=== PATIENT | female | born 1970 | race Caucasian/White ===

== ENCOUNTER → 2018-01-07 07:42 | Outpatient (CLI) | payer OTHER, SELFPAY ==
[2018-01-07 09:46] LABS: Alanine Aminotransferase 21 U/L (12-78); Albumin Level 3.5 gm/dL (3.4-5.0); Alkaline Phosphatase 76 U/L (46-116); Aspartate Amino Transferase 8 U/L (15-37); Bilirubin,Direct 0.2 mg/dL (0.0-0.2); Bilirubin,Indirect 0.5 mg/dL (0.0-0.9); Bilirubin,Total 0.7 mg/dL (0.2-1.0); Chol/HDL Ratio 3.5 (1-3.5); Cholesterol 112 mg/dL (140-200); HDL Cholesterol 32 mg/dL (29-89); LDL Cholesterol 53 mg/dL (0-130); Total Protein,Serum 7.2 gm/dL (6.4-8.2); Triglycerides 136 mg/dL (30-200); VLDL Cholesterol 27 mg/dL (0-40)
== END ==
PROVIDERS: Visit Provider Urology
DX: I10 Essential (primary) hypertension (principal); I25.10 Atherosclerotic heart disease of native coronary artery without angina pectoris
CPT/HCPCS: 36415; 80061; 80076

== ENCOUNTER → 2018-07-27 11:27 | Outpatient (CLI) | payer OTHER, SELFPAY ==
--- NOTE | 2018-07-27 11:28 | NM_ITS ---
CARDIOLITE SPECT MYOCARDIAL PERFUSION LEXISCAN, REST AND STRESS: [facility] REVIEW QGS EF AND WALL MOTION EVALUATION: QPS - PERFUSION EVALUATION HISTORY: c.p., cad DOSE: 10.34 mCi technetium 99m mibi intravenously at rest followed by 30.2 mCi technetium 99m mibi following the intravenous ministration of 0.4 mg of Lexiscan. Resting blood pressure is 128/71. Stress blood pressure 125/69. FINDINGS: Ejection fraction is calculated to be 69%. Uniform activity with both stress and rest IMPRESSION: No scintigraphic evidence of Lexiscan-induced myocardial ischemia with normal ejection fraction normal wall motion
--- NOTE | 2018-07-27 11:44 | CA_ITS ---
PROCEDURE: 2-D M-mode and color Doppler study INDICATIONS FOR THE TEST: Chest pain X COPD Heart Murmur Tobacco SmokingX Palpitations Fatigue Syncope Edema HypertensionXDiabetes MellitusX Rheumatic Fever SOB BOU[place]REAUX ObesityXHyperlipidemia Family History HD Additional History CAD,STENTS PATIENT INFORMATION HEIGHT: 65 WEIGHT:206 GENDER: Female B/P:110/60 2-D/M-MODE INTERPRETATION: 2-D MEASUREMENTS OBSERVED VALUES IN CMS Right Ventricular Dimension (RVDd) 2.6 Interventricular Septum (Thickness)(IVsd) .9 Left Ventricular Internal Dimensions(LVIDd) 5.3 Left Ventricular Posterior Wall (Thickness)(LVPWd) 1.0 Aortic Root 3.2 Aortic Cusp Separation 1.5 Left Atrial Dimensions (LAD) 3.0 2D 1. Left atrium is mildly enlarged, left ventricle is normal size, visually estimated ejection fraction 55% with no regional wall motion abnormality, there is no concentric left ventricular hypertrophy present. 2. The right atrium and right ventricle are relatively normal size and function. 3. The aortic valve is minimally thickened fibrosed. 4. The mitral and tricuspid valvular grossly normal. 5. The pulmonic valve is poorly visualized. 6. No significant pericardial effusion noted. DOPPLER INTERROGATION: Doppler interrogation of the aortic, mitral and tricuspid valvular presence of mild mitral and tricuspid regurgitation, tricuspid regurgitation jet velocity is inadequate for calculation of the right ventricular systolic pressure, diastolic parameters are inconclusive. CONCLUSION: 1. Normal left ventricular size, preserved left ventricular systolic function, visually estimated ejection fraction 55% with no regional wall motion abnormality, diastolic parameters are inconclusive. 2. Mild mitral and tricuspid regurgitation 3. No significant pericardial effusion noted.
--- NOTE | 2018-07-27 12:32 | HMH.ITSHM ---
Current Home Medications as stated by this patient Luisana Julien or business services sales representative. [] clopidogrel isosorb atorvastatin metoprolol pantoprazole proxetine loradadine
--- NOTE | 2018-07-27 12:34 | HMH.ITSHM ---
Current Home Medications as stated by this patient Luisana Julien or technical service representative. []
== END ==
PROVIDERS: PCP Internal Medicine; Visit Provider Urology
DX: R07.9 Chest pain, unspecified (principal); I25.10 Atherosclerotic heart disease of native coronary artery without angina pectoris; E66.9 Obesity, unspecified; E78.5 Hyperlipidemia, unspecified; I10 Essential (primary) hypertension; R07.89 Other chest pain; Z68.34 Body mass index [BMI] 34.0-34.9, adult; Z95.5 Presence of coronary angioplasty implant and graft
CPT/HCPCS: 78452; 93017; 93306; A9502; J2785

== ENCOUNTER → 2018-09-28 12:08 | Outpatient (CLI) | payer OTHER, SELFPAY ==
[2018-09-28 14:20] LABS: Anion Gap 9.4 mEq/L (5-15); Blood Urea Nitrogen 11 mg/dL (7-18); Calcium 9.8 mg/dL (8.5-10.1); Carbon Dioxide 33 mmol/L (21.0-32.0); Chloride 103 mmol/L (98-107); Creatinine,Serum 0.76 mg/dL (0.55-1.02); Estimated Glomerular Filt Rate 81 ml/min (>60); GFR (African American) 97 ML/MIN (>60); Glucose 121 mg/dL (74-106); Potassium 4.4 mmoL/L (3.5-5.1); Sodium 141 mmol/L (136-145)
== END ==
PROVIDERS: Visit Provider Nurse Practitioner Family
DX: I25.10 Atherosclerotic heart disease of native coronary artery without angina pectoris (principal); E78.5 Hyperlipidemia, unspecified; I10 Essential (primary) hypertension; I51.89 Other ill-defined heart diseases; Z95.5 Presence of coronary angioplasty implant and graft
CPT/HCPCS: 36415; 80048

== ENCOUNTER → 2018-12-29 10:55 | Outpatient (CLI) | payer OTHER, SELFPAY ==
--- NOTE | 2018-12-29 10:58 | CA_ITS ---
APPROVED REPORT Nutritional Chemist: Mel Devlin RDCS Laterality: Bilateral Indications: dizziness HTN CAD Doppler Spectral Velocity Analysis dICA (R) 68.10/27.00 cm/s dICA (L) 54.90/19.30 cm/s Holly (R) 65.80/26.90 cm/s Holly (L) 71.30/28.90 cm/s pICA (R) 85.50/29.90 cm/s pICA (L) 77.10/29.90 cm/s dCCA (R) 51.30/19.80 cm/s dCCA (L) 63.60/21.90 cm/s pCCA (L) 57.10/18.60 cm/s Vert (R) 36.60/14.10 cm/s ICA/CCA 1.67 Vert (L) 117.60/23.50 cm/s ICA/CCA 1.21 Conclusion Duplex evaluation demonstrates stenosis of the right proximal internal carotid artery <20% with PSV <140 cm/sec, EDV <100 cm/sec, and IC/CC Ratio <4.0.Duplex evaluation demonstrates stenosis of the left proximal internal carotid artery in the range of 20-49% with PSV <140 cm/sec, EDV <100 cm/sec, and IC/CC Ratio <4.0.Antegrade flow seen bilateral vertebral arteries. Electronically signed by : Ziggy Carballo MD 12/29/2018 18:13:20
== END ==
PROVIDERS: PCP Internal Medicine; Visit Provider Urology
DX: R42 Dizziness and giddiness (principal)
CPT/HCPCS: 93880

== ENCOUNTER → 2019-04-26 06:25 | Outpatient (CLI) | payer BC, SELFPAY ==
--- NOTE | 2019-04-26 06:26 | NM_ITS ---
APPROVED REPORT Exam: Nuclear Stress Test Indication: Chest pain, SOB, Fatigue, HTN, High cholesterol, Tobacco use, Family history, CAD Patient Location: Outpatient Stress Tech: Mackenzie Villareal MS Tech:Estrella Lawrence, ARRT, RT (R)(N) Ht: 5 ft 6 in Wt: 229 lbs Bra Size: C HR: 61 bpm BP: 139/77 mmHg BSA: 2.12 m2 BMI: 36.9 History: Chest pain, SOB, Fatigue, HTN, High cholesterol, Tobacco use, Family history, CAD Procedure: Patient received a 0.4 mg of intravenous Lexiscan, resting heart rate 61 bpm, resting blood pressure 139/77 mmHg, with Lexiscan maximum heart rate achived was 99 bpm which is % of the maximum predicted heart rate and blood pressure was 131/84 mmHg. With Lexiscan, patient denied any complaint of chest pain. Cardiac Stress and Resting SPECT Images: Cardiac Stress and Resting SPECT images were obtained using technetium 99m Myoview 31.6 mCi stress and 10.18 mCi at rest. EF 59% Probable breast attenuation anterior septal region No fixed or reversible defects Conclusion: Normal EF with no obvius ischemic change or infarction Electronically signed by : Ziggy Carballo MD 04/26/2019 17:26:47
--- NOTE | 2019-04-26 06:26 | CA_ITS ---
APPROVED REPORT Exam: Pharmacologic Technologist: Mackenzie Villareal, Ht: 5 ft 6 in Wt: 229 lbs BSA: 2.12 m2 Indications: Chest Pain Medical History Medical History: HTN, Hyperlipidemia Cardiac Risk Factors: FHX of CAD, HTN, Hyperlipidemia Stress Test Details Test: LEXISCAN Reason for pharmacologic stress test: physical limitation. HR Resting HR: 62 bpm Max Heart Rate (APMHR): 170 bpm Max HR Achieved: 99 bpm Target HR (85% APMHR): 144 bpm % of APMHR: 58 BP Max BP: 150/85 mmHg ECG Clinical Reason for Termination: Completed Protocol Exercise duration: 04:01 min Highest Stage Achieved: Exercise capacity: 1.0 METs Stress ECG Conclusion no symptoms or arrhythmias noted. less than mm ST segment changes. Non diagnostic. Test Summary RECOVERY 03:34 . . 78 . . . . REST 06:59 . . 62 . . . . Stage 1 01:00 . . 93 . . . . Stage 2 01:00 . . 95 . 131/ 84 . . Stage 3 01:00 . . 86 . 150/ 85 . . Stage 4 01:00 . . 83 . 135/ 64 . . Stage 4 01:01 . . 83 . 135/ 64 . Stop exercise at 04:01 RECOVERY 01:00 . . 81 . . . . RECOVERY 02:00 . . 82 . . . . RECOVERY 03:00 . . 84 . . . . RECOVERY 03:34 . . 78 . . . . Electronically signed by : Barney Rodriguez, 04/29/2019 12:07:56
--- NOTE | 2019-04-26 07:26 | HMH.ITSHM ---
Current Home Medications as stated by this patient Luisana Julien or public service representative. []METOPROLOL ATORVASTATIN RANLOLAXINE PAROXETINE PLAVIX PANTOPRAZOLE NITRO ISOSORBIDE VITAMIN D3 BUMETANIDE ALBUTEROL
== END ==
PROVIDERS: PCP Internal Medicine; Visit Provider Urology
DX: I20.9 Angina pectoris, unspecified (principal); R06.00 Dyspnea, unspecified; I10 Essential (primary) hypertension
CPT/HCPCS: 78452; 93017; A9502; J2785

== ENCOUNTER → 2019-05-14 12:55 | Outpatient (CLI) | payer BC, SELFPAY | PROVIDERS: PCP Internal Medicine; Visit Provider Urology | DX: R53.83 Other fatigue (principal); R40.0 Somnolence; R06.83 Snoring; I25.10 Atherosclerotic heart disease of native coronary artery without angina pectoris; E78.5 Hyperlipidemia, unspecified; E66.9 Obesity, unspecified; Z95.5 Presence of coronary angioplasty implant and graft; G47.33 Obstructive sleep apnea (adult) (pediatric) | CPT/HCPCS: G0399 ==

== ENCOUNTER → 2020-09-27 14:35 | Outpatient (CLI) | payer BC, SELFPAY ==
[2020-09-27 15:21] LABS: Chloride 101 mmol/L (98-107); Potassium 4.4 mmoL/L (3.5-5.1); Sodium 141 mmol/L (136-145)
[2020-09-27 15:24] LABS: Anion Gap 13.4 mEq/L (5-15); Blood Urea Nitrogen 8 mg/dl (7-17); Carbon Dioxide 31 mmol/L (22.0-30.0); Estimated Glomerular Filt Rate 75 ml/min (>60); GFR (African American) 91 ML/MIN (>60)
[2020-09-27 15:25] LABS: Calcium 9.4 mg/dl (8.4-10.2); Glucose 118 mg/dl (74-100)
== END ==
PROVIDERS: Visit Provider Physician Assistant
DX: R07.9 Chest pain, unspecified (principal); R06.00 Dyspnea, unspecified; R55 Syncope and collapse; I25.10 Atherosclerotic heart disease of native coronary artery without angina pectoris; I10 Essential (primary) hypertension; E78.5 Hyperlipidemia, unspecified; E66.9 Obesity, unspecified; Z68.36 Body mass index [BMI] 36.0-36.9, adult; Z95.5 Presence of coronary angioplasty implant and graft
CPT/HCPCS: 36415; 80048

== ENCOUNTER → 2020-10-10 12:14 | Outpatient (CLI) | payer BC, SELFPAY ==
--- NOTE | 2020-10-10 | CA_ITS ---
APPROVED REPORT Exam: Pharmacologic Technologist: Gabbi Huang Ht: 5 ft 5 in Wt: 220 lbs BSA: 2.06 m2 HR: 73 bpm BP: 127/75 mmHg Indications: Chest pain, Shortness of Breath Stress Test Details Test: LEXISCAN HR Resting HR: 75 bpm Max Heart Rate (APMHR): 168.994626 bpm Max HR Achieved: 102 bpm Target HR (85% APMHR): 142.458899 bpm % of APMHR: 60.71 Recovery HR: 83 bpm BP Resting BP: 127.0/75.0 mmHg Max BP: 129.0/63.0 mmHg Recovery BP: 129.0/63.0 mmHg ECG Resting ECG: Normal sinus rhythm, slow R wave progression Clinical Exercise duration: 04:00 min Highest Stage Achieved: Stress ECG Conclusion Symptoms: Shortness of air, chest pressure, malaise, headache Arrhythmias/Ectopy: None ST-T Changes: NS T wave flattening Conclusion: Unremarkable Lexiscan stress. Myoview images reported separately. Test Summary RECOVERY 03:18 . . 82 . 129/ 63 . . REST 04:09 . . 75 . 127/ 75 . . Stage 1 . . . . . . . Myoview Injected Stage 1 01:00 . . 96 . . . . Stage 2 01:00 . . 100 . 127/ 67 . . Stage 3 . . . . . . . chest pressure Stage 3 01:00 . . 90 . 126/ 73 . . Stage 4 01:00 . . 87 . 121/ 77 . Stop exercise at 04:00 RECOVERY 01:00 . . 86 . 120/ 64 . . RECOVERY 02:00 . . 83 . 120/ 64 . . RECOVERY 03:00 . . 83 . 129/ 63 . . RECOVERY 03:18 . . 82 . 129/ 63 . . Electronically signed by : Swapnil Rodriges MD 10/10/2020 18:45:28
--- NOTE | 2020-10-10 12:14 | NM_ITS ---
APPROVED REPORT Exam: Nuclear Stress Test Indication: chest pain..short of breath..palpitations..fatigue..syncope Patient Location: Outpatient Stress Tech: Gabbi Huang NM Tech:Estrella Lawrence, ARRT, RT (R)(N) Ht: 5 ft 6 in Wt: 219 lbs Bra Size: c HR: 73 bpm BP: 127/75 mmHg BSA: 2.08 m2 BMI: 35.3 History: chest pain..short of breath..palpitations..fatigue..syncope Procedure: Patient received a 0.4 mg of intravenous Lexiscan, resting heart rate 73 bpm, resting blood pressure 127/75 mmHg, with Lexiscan maximum heart rate achived was 99 bpm which is Less than 85 % of the maximum predicted heart rate and blood pressure was 127/73 mmHg. Electrocardiogram Resting electrocardiogram showed sinus rhythm, with Lexiscan there is less than 1.[address] segment depression noted from the baseline EKG. The EKG portion of the Lexiscan is nondiagnostic. Cardiac Stress and Resting SPECT Images: Cardiac Stress and Resting SPECT images were obtained using technetium 99m Myoview 30.4 mCi stress and 10.05 mCi at rest. Gated SPECT for analysis of segmental wall motion and calculation of the ejection fraction also done. Prone images were also obtained. Cardiac stress and resting SPECT images show uniform myocardial activity without segmental perfusion abnormality, computer derived ejection fraction is 60% with no regional wall motion abnormality, right ventricle is mildly enlarged with normal contractility, however there is transient ischemic dilatation of the left ventricle seen, raising the concerns for presence of balanced ischemia. Conclusion: 1. The EKG portion of the Lexiscan is nondiagnostic. 2. No scintigraphic evidence of reversible ischemia seen, computer derived ejection fraction is 60% with no regional wall motion abnormality, right ventricle is mildly enlarged with normal contractility, however there is transient ischemic dilatation of the left ventricle seen, raising the concern for presence of balanced ischemia. Other causes for transient ischemic dilatation includes hypertensive heart disease, microvascular disease, elevated left ventricular end-diastolic pressure and diabetes mellitus. Clinical correlation is recommended 3. Abnormal Lexiscan Myoview study. Electronically signed by : Swapnil Rodriges MD 10/10/2020 19:10:42
--- NOTE | 2020-10-10 13:41 | CA_ITS ---
APPROVED REPORT EXAM: Comprehensive 2D, Doppler, and color-flow Echocardiogram Academic Program Specialist: Joy Simpson, BRUNO, RVS Ht: 5 ft 5 in Wt: 220lbs BSA: 2.06 BP: 131/74 mmHg Indications: CAD-coronary stent, CP,SOB,HLD,LV Diastolic Dysfunction,HTN 2D Dimensions IVSd 0.93 cm LVEF (Visual) 41.40 % PWd 0.97 cm LA Volume 33.40 mL LVDd 5.45 cm LA Volume Index 16.20 mL/m2 (M/F) 16-34 LVDs 4.24 cm Left Atrium 2.82 cm LVOT 1.90 cm (M/F) 1.5-2.5 M-Mode Dimensions LA Diam 3.70 cm (1.9-4.0) Ao Diam 3.09 cm (2.0-3.7) EPSs 0.50 cm TAPSE 1.84 (<1.7) LV Diastology E Decel Time 257.00 (160-240 msec) E/A Ratio 1.03 MED E' 5.20 (< 7 cm/sec) MED A' 8.60 cm/s E'/MED E' Ratio 15.77 (>14) LAT E' 8.60 (<10 cm/sec) LAT A' 7.80 cm/s E/LAT E' Ratio 9.53 (>14) Aortic Valve LVOT Max 119.00 (70-110 cm/s) LVOT VTI 21.08 cm AoV Peak Paul. 161.00 (50-130 cm/s) AO Peak GR. 10.40 mmHg AO Mean GR. 5.30 (<5 mmHg) AO VTI 30.80 (18-25 cm) LILIYA (VTI) 1.94 (2.5-4.5 cm2) Mitral Valve MV A Velocity 80.00 (40-130 cm/s) E/A Ratio 1.03 MV Decel. Time 257.00 (160-240 ms) Pulmonary Valve PV Peak Velocity 115.00 (50-150 cm/s) Left Ventricle Left atrium is mildly enlarged, left ventricle is normal size, visually estimated ejection fraction 50%, there is moderate hypokinesis involving the inferior basal wall. Diastolic parameters are inconclusive. Right Ventricle Right atrium and right ventricle are normal size and contractility. Aortic Valve Aortic valve is minimally thickened and fibrosed, there is no aortic stenosis or aortic insufficiency. Mitral Valve Mitral valve is grossly normal, there is trace mitral regurgitation. Tricuspid Valve Tricuspid valve grossly normal, there is trace tricuspid regurgitation, tricuspid regurgitation jet velocity is inadequate for calculation of the right ventricular systolic pressure. Pulmonic Valve Pulmonic valve is poorly visualized. Great Vessels Aortic root is normal size. Pericardium No significant pericardial effusion noted. Conclusion 1. Mildly enlarged left atrium, normal left ventricular size, visually estimated ejection fraction 50% with segmental wall motion abnormalities described above, diastolic parameters are inconclusive. 2. Trace mitral and tricuspid regurgitation. 3. No significant pericardial effusion noted. Electronically signed by : Swapnil Rodriges MD 10/10/2020 18:42:34
--- NOTE | 2020-10-10 13:56 | HMH.ITSHM ---
Current Home Medications as stated by this patient Luisana Julien or sales representative printing paper. []RANOLAZINE PAROXETINE PANTOPRAZOLE NITRO LORATADINE LISINOPRIL VITAMIN D3 BUMETANIDE AMTRIPTYLINE ALBUTEROL METPROLOL CLOPIDOGREL ATORVASTATIN
== END ==
PROVIDERS: PCP Internal Medicine; Visit Provider Physician Assistant
DX: R07.9 Chest pain, unspecified (principal); R06.00 Dyspnea, unspecified; R55 Syncope and collapse; I25.10 Atherosclerotic heart disease of native coronary artery without angina pectoris; I10 Essential (primary) hypertension; E78.5 Hyperlipidemia, unspecified; E66.9 Obesity, unspecified; Z68.36 Body mass index [BMI] 36.0-36.9, adult; Z95.5 Presence of coronary angioplasty implant and graft
CPT/HCPCS: 78452; 93017; 93306; A9502; J2785

== ENCOUNTER → 2020-10-25 12:46 | Outpatient (CLI) | payer BC, SELFPAY ==
--- NOTE | 2020-10-25 12:49 | CA_ITS ---
APPROVED REPORT Nanoscience Technician: DIANA Laterality: Bilateral Study Quality: Adequate Indications: dizziness Risk Factors Hypertension: Hyperlipidemia Diabetes Smoking CO one month ago. Doppler Spectral Velocity Analysis ECA (R) 138.70/35.60 cm/s ECA (L) 143.30/31.00 cm/s dICA (R) 86.80/42.60 cm/s dICA (L) 87.40/36.00 cm/s Holly (R) 87.50/36.70 cm/s Holly (L) 102.80/40.30 cm/s pICA (R) 106.90/41.40 cm/s pICA (L) 96.80/40.30 cm/s dCCA (R) 90.50/27.70 cm/s dCCA (L) 86.00/32.20 cm/s pCCA (R) 97.30/28.90 cm/s pCCA (L) 107.70/34.40 cm/s Vert (R) 44.40/17.60 cm/s Vert (L) 41.10/12.20 cm/s ICA/CCA 1.18 ICA/CCA 1.19 Findings Study suggets less than 20% stenosis of the right internal carotid artery. Study suggets 20-49% stenosis of the left internal carotid artery. B-Mode ultrasound demonstrates mild intraluminal plaque in the left proximal internal carotid artery. Duplex evaluation demonstrates antegrade flow of the bilateral vertebral arteries. Conclusion Study suggets less than 20% stenosis of the right internal carotid artery. Study suggets 20-49% stenosis of the left internal carotid artery. B-Mode ultrasound demonstrates mild intraluminal plaque in the left proximal internal carotid artery. Duplex evaluation demonstrates antegrade flow of the bilateral vertebral arteries. Electronically signed by : Ziggy Carballo MD 10/25/2020 15:53:32
== END ==
PROVIDERS: PCP Internal Medicine; Visit Provider Urology
DX: R06.00 Dyspnea, unspecified (principal); R42 Dizziness and giddiness; R55 Syncope and collapse; I20.8 Other forms of angina pectoris; I25.10 Atherosclerotic heart disease of native coronary artery without angina pectoris; I10 Essential (primary) hypertension; E78.2 Mixed hyperlipidemia; E66.9 Obesity, unspecified; R60.0 Localized edema; R94.31 Abnormal electrocardiogram [ECG] [EKG]; Z95.5 Presence of coronary angioplasty implant and graft
CPT/HCPCS: 93880

== ENCOUNTER → 2020-10-31 07:51 | Outpatient (CLI) | payer BC, SELFPAY ==
[2020-10-31 08:13] LABS: Basophils % 0.4 % (0.1-2.0); Eosinophils # 0.1 K/mm3 (0.0-0.4); Eosinophils % 1.3 % (0.1-12.0); Hematocrit 45.8 % (37.0-47.0); Hemoglobin 15.6 g/dL (12.2-16.2); Lymphocytes # 1.7 K/mm3 (0.7-4.5); Lymphocytes % 31.2 % (10-50); Mean Corpuscular HGB Conc 34.1 g/dL (31.8-35.4); Mean Corpuscular Hemoglobin 34.8 pg (27.0-31.2); Mean Corpuscular Volume 101.9 fl (81-99); Mean Platelet Volume 7.8 fl (7.4-10.4); Monocytes # 0.4 K/mm3 (0.1-1.0); Monocytes % 7.6 % (1.7-9.3); Neutrophils # 3.2 K/mm3 (1.8-7.8); Neutrophils % 59.5 % (37.0-80.0); Platelet Count 170 K/mm3 (142-424); White Blood Count 5.4 K/mm3 (4.8-10.8)
[2020-10-31 09:12] LABS: Anion Gap 13.3 mEq/L (5-15); Blood Urea Nitrogen 11 mg/dl (7-17); Calcium 9.3 mg/dl (8.4-10.2); Carbon Dioxide 33 mmol/L (22.0-30.0); Chloride 100 mmol/L (98-107); Estimated Glomerular Filt Rate 75 ml/min (>60); GFR (African American) 91 ML/MIN (>60); Glucose 129 mg/dl (74-100); Potassium 4.3 mmoL/L (3.5-5.1); Sodium 142 mmol/L (136-145)
== END ==
PROVIDERS: Visit Provider Urology
DX: Z01.812 Encounter for preprocedural laboratory examination (principal); Z20.822 Contact with and (suspected) exposure to COVID-19; R06.00 Dyspnea, unspecified; R42 Dizziness and giddiness; R55 Syncope and collapse; I20.8 Other forms of angina pectoris; I10 Essential (primary) hypertension; E78.2 Mixed hyperlipidemia; R60.0 Localized edema; R94.31 Abnormal electrocardiogram [ECG] [EKG]; I63.9 Cerebral infarction, unspecified; E66.9 Obesity, unspecified; Z68.36 Body mass index [BMI] 36.0-36.9, adult; Z95.5 Presence of coronary angioplasty implant and graft
CPT/HCPCS: 36415; 80048; 85025; C9803; U0003; U0005

== ENCOUNTER 2020-11-02 09:04 | Day surgery (SDC) | payer BC, SELFPAY ==
[2020-11-02] VITALS (9 sets, daily range): BP systolic 107–126; BP diastolic 57–78; PULSE 69–80; RESP 16–20; TEMP 37.1; O2SAT 92–97; BMI 36.9
--- NOTE | 2020-11-02 07:06 | IR_ITS ---
APPROVED REPORT Patient Location: Outpatient Drink Mixer: ILIANA Badillo RT (R) PROCEDURES Left heart catheterization Left ventriculogram Selective coronary angiogram INDICATION Known coronary disease, Persistent atypical angina Informed consent was obtained prior to the procedure. COMPLICATIONS None Estimated Blood Loss: less than 10 ml TECHNIQUE One percent lidocaine used to anesthetize the right anterior aspect of the wrist. The right radial artery was accessed via the Seldinger technique. A 6 Thai sheath was placed in the right radial artery. 2.5 mg of verapamil, 800 mcg of nitroglycerin, 1mg Lidocaine and 5000 U Heparin were given through the arterial sheath. The trap catheter was also used to perform left heart catheterization, left ventriculogram and selective coronary angiogram. At the end of the procedure the sheath was removed good hemostasis was achieved using Traclet band, patient was transferred to the postop holding area in stable condition. ANGIOGRAPHIC RESULTS The left main artery Is an ostial smooth 10 to 20% stenosis The left anterior descending artery Has proximal 10% luminal irregularities with a stent in the mid segment which is widely patent free of in-stent restenosis with excellent proximal distal transitioning. The remaining vessel has mild luminal irregularities. The circumflex artery Has a proximal concentric 30 to 40% stenosis followed by 2 large obtuse marginal arteries which are widely patent with mild 10% luminal irregularities The right coronary artery Is a dominant vessel and has mild 10% diffuse luminal irregularities The LU ventriculogram reveals Mildly dilated with reduced ejection fraction at 55% The left ventricular end-diastolic pressure Severely elevated at 30 mmHg IMPRESSION Widely patent coronary arteries as described above Mildly dilated ventricle with preserved ejection fraction followed by severely elevated LVEDP PLAN 1. Treatment of diastolic dysfunction which is the etiology for patient's atypical chest pain Electronically signed by : Barney Rodriguez MD 11/02/2020 10:45:39
== END 2020-11-02 13:40 | disposition home or self-care (01) ==
LOC: CATHLAB 09:05
PROVIDERS: PCP Internal Medicine; Visit Provider Internal Medicine
DX: I25.118 Atherosclerotic heart disease of native coronary artery with other forms of angina pectoris (principal); I10 Essential (primary) hypertension; Z95.5 Presence of coronary angioplasty implant and graft; Z79.899 Other long term (current) drug therapy; E11.9 Type 2 diabetes mellitus without complications; K21.9 Gastro-esophageal reflux disease without esophagitis; I25.2 Old myocardial infarction
CPT/HCPCS: 93458; 99152; C1725; C1760; C1769; J1644; Q9967

== ENCOUNTER → 2021-10-29 12:29 | Outpatient (CLI) | payer BC, SELFPAY ==
--- NOTE | 2021-10-29 12:30 | CA_ITS ---
FINAL REPORT TECHNIQUE: Color Doppler, duplex Doppler and villegas scale sonography of the bilateral neck arterial vasculature was performed. Velocities were measured in the carotid arteries. Stenosis evaluation based on the validated velocity criteria. CLINICAL HISTORY: JAMIN,HTN,HLD FINDINGS: The peak systolic velocity of the right common carotid artery is 86 cm/s. The peak systolic velocity of the right internal carotid artery is 111 cm/s and end diastolic velocity 34 cm/s. A small amount of plaque is present. The right external carotid artery is patent. The right vertebral artery is patent with antegrade flow. The peak systolic velocity of the left common carotid artery is 79 cm/s. The peak systolic velocity of the left internal carotid artery is 100 cm/s and end diastolic velocity 29 cm/s. A small amount of plaque is present. The left external carotid artery is patent.The left vertebral artery is patent with antegrade flow. IMPRESSION: Less than 50% bilateral carotid stenoses. Bilateral patent vertebral arteries with antegrade flow. If indicated, CTA or MRA could further evaluate. Reviewed, Interpreted and Dictated by Cecil Vicente III, MD Transcribed by Maame Martins Authenticated and [facility]
== END ==
LOC: RT 12:30
PROVIDERS: PCP Internal Medicine; Visit Provider Nurse Practitioner
DX: I65.23 Occlusion and stenosis of bilateral carotid arteries (principal); I10 Essential (primary) hypertension; I25.10 Atherosclerotic heart disease of native coronary artery without angina pectoris; E78.2 Mixed hyperlipidemia; E66.9 Obesity, unspecified; Z68.35 Body mass index [BMI] 35.0-35.9, adult; Z95.5 Presence of coronary angioplasty implant and graft
CPT/HCPCS: 93880

== ENCOUNTER → 2021-11-01 12:39 | Outpatient (CLI) | payer BC, SELFPAY ==
--- NOTE | 2021-11-01 12:44 | US_ITS ---
FINAL REPORT CLINICAL HISTORY: claudication,HTN,,SMOKER,HLD FINDINGS: ANKLE-BRACHIAL PRESSURE INDICES Pressure indices are as follows: RIGHT LOWER EXTREMITY: Ankle-brachial pressure index: 1.1 Comments: Normal LEFT LOWER EXTREMITY: Ankle-brachial pressure index: 1.2 Comments: Normal CONCLUSION: No evidence of significant obstructive peripheral vascular disease of the lower extremities Reviewed, Interpreted and Dictated by Cecil Vicente III, MD Transcribed by Puja Gardiner Authenticated and [facility]
--- NOTE | 2021-11-01 12:45 | CA_ITS ---
FINAL REPORT TECHNIQUE: Color Doppler, duplex Doppler and compression sonography of the right lower extremity venous system was performed. CLINICAL HISTORY: EDEMA AND NUMBNESS FINDINGS: There is no evidence of deep venous thrombosis from the level of the groin to the calf. The veins are patent and compressible. IMPRESSION: No evidence of deep venous thrombosis right lower extremity. Reviewed, Interpreted and Dictated by Cecil Vicente III, MD Transcribed by Puja Gardiner Authenticated and . [facility]
== END ==
PROVIDERS: PCP Internal Medicine; Visit Provider Nurse Practitioner
DX: M79.661 Pain in right lower leg (principal); I73.9 Peripheral vascular disease, unspecified; R20.0 Anesthesia of skin
CPT/HCPCS: 93923; 93971

== ENCOUNTER → 2022-02-06 11:31 | Outpatient (CLI) | payer BC, SELFPAY ==
--- NOTE | 2022-02-06 11:31 | NM_ITS ---
APPROVED REPORT Exam: Nuclear Stress Test Indication: chest pain..short of breath..palpitations..fatigue Patient Location: Outpatient Stress Tech: Michelle Stone MN Tech:Estrella Lawrence, ARRT, RT (R)(N) Ht: 5 ft 6 in Wt: 213 lbs Bra Size: c HR: 64 bpm BP: 123/74 mmHg BSA: 2.05 m2 TID: 1.27 BMI: 34.3 History: chest pain..short of breath..palpitations..fatigue Procedure: Patient received a 0.4 mg of intravenous Lexiscan, resting heart rate 64 bpm, resting blood pressure 123/74 mmHg, with Lexiscan maximum heart rate achived was 84 bpm which is Less than 85 % of the maximum predicted heart rate and blood pressure was 131/74 mmHg. With Lexiscan, patient denied any complaint of chest pain. Electrocardiogram Resting electrocardiogram shows sinus rhythm, with exercise there is less than 1.[address] segment depression noted from the baseline EKG. The EKG portion of the Lexiscan Myoview was negative for ischemia. Cardiac Stress and Resting SPECT Images: Cardiac Stress and Resting SPECT images were obtained using technetium 99m Myoview 32.6 mCi stress and 10.38 mCi at rest. Gated SPECT for analysis of segmental wall motion and calculation of the ejection fraction also done. Prone images were also obtained. Cardiac stress and rest SPECT images show uniform myocardial activity without segmental perfusion abnormality, computer derived ejection fraction is 55% with no regional wall motion abnormality, right ventricle is normal size and contractility. Conclusion: 1. The EKG portion of the Lexiscan is nondiagnostic. 2. No scintigraphic evidence of reversible ischemia seen, computer derived ejection fraction is 55% with no regional wall motion abnormality, right ventricle is normal size and contractility. 3. Normal Lexiscan Myoview study. Electronically signed by : Swapnil Rodriges MD 02/07/2022 06:10:45
--- NOTE | 2022-02-06 13:25 | HMH.ITSHM ---
Current Home Medications as stated by this patient Luisana Julien or hr representative. [RANOLAZINE PAROXETINE PANTOPRAZOLE NITRO METOPROLOL LORATADINE LISINOPRIL HYDROXYZINE CLOPIDOGREL VITAMIN D3 BUSPIRONE BUMETAMIDE BUMETANIDE ATORVASTATIN AMTRIPTYLINE ALBUTEROL
--- NOTE | 2022-02-06 14:05 | CA_ITS ---
APPROVED REPORT Exam: Pharmacologic Technologist: Michelle Donnelly, Ht: 5 ft 6 in Wt: 214 lbs BSA: 2.06 m2 HR: 64 bpm BP: 123/74 mmHg Medical History Medications: Lisinopril,,,,, Metoprolol,,,,, Vitamin D3,,,,, Pantoprazole,,,,, Atorvastatin,,,,, Buspirone,,,,, Albuterol,,,,, LoraTADINE,,,,, AmiTRIPTYLINE,,,,, PaXIL,,,,, Nitroglycerin,,,,, Hydroxyzine,,,,, Stress Test Details Test: LEXISCAN Reason for pharmacologic stress test: physical limitation. HR Resting HR: 64 bpm Max Heart Rate (APMHR): 167.292139 bpm Max HR Achieved: 84 bpm Target HR (85% APMHR): 141.634504 bpm % of APMHR: 50.30 Recovery HR: 68 bpm BP Resting BP: 123/74 mmHg Max BP: 131/74 mmHg Recovery BP: 126.0/69.0 mmHg ECG Resting ECG: NSR, normal Clinical Exercise duration: 04:05 min Highest Stage Achieved: Exercise capacity: 1.0 METs Stress ECG Conclusion Symptoms: Mild chest pressure, SOA, head discomfort. Arrhythmias/Ectopy: None. ST-T Changes: No significant changes. Conclusion: Unremarkable Lexiscan stress. Myoview images reported separately. Test Summary REST . . . . . . . Resting REST 02:58 . . 64 . 123/ 74 . . Stage 1 01:00 . . 74 . . . . Stage 2 01:00 . . 78 . 131/ 74 . . Stage 3 01:00 . . 73 . 124/ 69 . . Stage 4 01:00 . . 70 . 125/ 67 . . Stage 4 01:05 . . 70 . 125/ 67 . Stop exercise at 04:05 RECOVERY 01:00 . . 69 . 126/ 67 . . RECOVERY 02:00 . . 72 . 126/ 67 . . RECOVERY 03:00 . . 70 . 126/ 67 . . RECOVERY 04:00 . . 70 . 125/ 72 . . RECOVERY 05:00 . . 69 . 126/ 69 . . RECOVERY 05:26 . . 71 . 126/ 69 . . Electronically signed by : Swapnil Rodriges MD 02/07/2022 06:08:14
== END ==
LOC: RAD 11:31
PROVIDERS: PCP Internal Medicine; Visit Provider Physician Assistant
DX: I20.8 Other forms of angina pectoris (principal); I10 Essential (primary) hypertension; E78.2 Mixed hyperlipidemia; I65.29 Occlusion and stenosis of unspecified carotid artery; I73.9 Peripheral vascular disease, unspecified; E66.9 Obesity, unspecified; Z68.34 Body mass index [BMI] 34.0-34.9, adult; Z95.5 Presence of coronary angioplasty implant and graft
CPT/HCPCS: 78452; 93017; A9502; J2785

== ENCOUNTER → 2022-10-08 10:04 | Outpatient (CLI) | payer BC, SELFPAY ==
--- NOTE | 2022-10-08 10:06 | CA_ITS ---
APPROVED REPORT EXAM: Comprehensive 2D, Doppler, and color-flow Echocardiogram [employer] Manager: Joy Simpson, BRUNO, RVS Ht: 5 ft 5 in Wt: 220lbs BSA: 2.06 BP: 150/82 mmHg Indications: cp, sycope, CAD, HTN, HLDsmoker 2D Dimensions IVSd 1.17 cm F: 0.6-1.0 LVEF (Visual) 55.30 % PWd 0.91 cm F: 0.6 - 1.0 LA Volume 37.30 mL LVDd 5.06 cm F: 3.9 - 5.3 LA Volume Index 18.11 mL/m2 (M/F) 16-34 LVDs 3.60 cm F: 2.2 - 3.5 M-Mode Dimensions LA Diam 3.54 cm (1.9-4.0) Ao Diam 2.86 cm (2.0-3.7) EPSs 0.69 cm TAPSE 2.29 (<1.7) LV Diastology E Decel Time 207.00 (160-240 msec) E/A Ratio 0.84 MED E' 5.90 (< 7 cm/sec) MED A' 6.50 cm/s E'/MED E' Ratio 13.02 (>14) LAT E' 7.90 (<10 cm/sec) LAT A' 8.80 cm/s E/LAT E' Ratio 9.72 (>14) Aortic Valve LVOT Max 117.00 (70-110 cm/s) LVOT VTI 24.04 cm AoV Peak Paul. 156.00 (50-130 cm/s) AO Peak GR. 9.80 mmHg AO Mean GR. 4.90 (<5 mmHg) AO VTI 29.15 (18-25 cm) Mitral Valve MV A Velocity 91.00 (40-130 cm/s) E/A Ratio 0.84 MV Decel. Time 207.00 (160-240 ms) Pulmonary Valve PV Peak Velocity 99.00 (50-150 cm/s) Tricuspid Valve TR P. Velocity 200.00 cm/s Left Ventricle The left ventricle is normal size. The left ventricular systolic function is normal. The left ventricular ejection fraction is within the normal range. There is increased LV wall thickness. There is mild hypokinesis of the basal to mid anterior and anterolateral LV weiss. The left ventricular diastolic function is normal. LVEF is 55%. Right Ventricle The right ventricle is normal size. The right ventricular systolic function is normal. Atria The left atrium size is normal. The right atrium size is normal. Aortic Valve The aortic valve is normal in structure. There is no aortic valvular stenosis. No aortic regurgitation is present. Mitral Valve The mitral valve is normal in structure. No evidence of mitral valve stenosis. Trace mitral regurgitation. Tricuspid Valve Tricuspid valve leaflets are thin and pliable. Trace tricuspid regurgitation. There is insufficient TR jet to estimate RVSP. Pulmonic Valve The pulmonary valve is normal in structure. Trace pulmonic regurgitation. Great Vessels The aortic root is normal in size. The ascending aorta is normal in size. IVC is normal in size and collapses >50% with inspiration. Pericardium There is no pericardial effusion. Other Information Study Quality: Fair Conclusion Normal biventricular systolic function. Mild hypokinesis of the anterior and anterolateral LV weiss. No significant valvular disease. Electronically signed by : Mel Hernandez, 10/08/2022 17:45:33
--- NOTE | 2022-10-08 10:06 | CA_ITS ---
FINAL REPORT TECHNIQUE: Color Doppler, duplex Doppler and villegas scale sonography of the bilateral neck arterial vasculature was performed. Velocities were measured in the carotid arteries. Stenosis evaluation based on the validated velocity criteria. CLINICAL HISTORY: SYNCOPE,DIZZINESS,HTN,HLD FINDINGS: The peak systolic velocity of the right common carotid artery is 90 cm/s. The peak systolic velocity of the right internal carotid artery is 110 cm/s and end diastolic velocity 32 cm/s. The ICA/CCA ratio is 1.7. A moderate amount of plaque is present. The right external carotid artery is patent. The right vertebral artery is patent with antegrade flow. The peak systolic velocity of the left common carotid artery is 95 cm/s. The peak systolic velocity of the left internal carotid artery is 114 cm/s and end diastolic velocity 51 cm/s. The ICA/CCA ratio is 1.4. A moderate amount of plaque is present. The left external carotid artery is patent.The left vertebral artery is patent with antegrade flow. IMPRESSION: Less than 50% bilateral carotid stenoses. Bilateral patent vertebral arteries with antegrade flow. If indicated, CTA or MRA could further evaluate. Reviewed, Interpreted and Dictated by Maurilio Lackey MD Transcribed by Vanesa Garzon Authenticated and [facility]
--- NOTE | 2022-10-08 10:52 | NM_ITS ---
APPROVED REPORT Exam: Nuclear Stress Test Indication: chest pain..soa..syncope..fatigue..high BP..high cholerterol..family hx Patient Location: Outpatient Stress Tech: Gabbi Huang ND Tech:Chayo Garcia JAMAJulio RT(R)(N) Ht: 5 ft 6 in Wt: 219 lbs Bra Size: xl HR: 61 bpm BP: 129/68 mmHg BSA: 2.08 m2 Rhythm: NSR TID: 1.20 BMI: 35.3 History: chest pain..soa..syncope..fatigue..high BP..high cholerterol..family hx Procedure: Patient received 0.4 mg of intravenous Lexiscan, resting heart rate 61 bpm, resting blood pressure 129/68 mmHg, with Lexiscan maximum heart rate achieved was 82 bpm which is 85 % of the maximum predicted heart rate and blood pressure was 138/70 mmHg. With Lexiscan, patient denied any complaint of chest pain. Cardiac Stress and Resting SPECT Images: Cardiac Stress and Resting SPECT images were obtained using technetium 99m Myoview 32.3 mCi stress and 10.96 mCi at rest. Resting and stress imaging in both supine and prone positions demonstrate a small sized, moderate, fixed perfusion defect in the distal anterior and anteroapical LV regions. There is borderline increase in transient ischemic dilatation ratio (TID 1.20), suggestive of possible balanced ischemia or multivessel disease. Gated imaging demonstrates normal global and regional LV systolic function. LVEF is calculated at 53%. Conclusion: Small sized, moderate, fixed perfusion defect in the distal anterior and anteroapical LV regions. There is no evidence of reversible ischemia. There is borderline increase in transient ischemic dilatation ratio (TID 1.20), suggestive of possible balanced ischemia or multivessel disease. Gated imaging demonstrates normal global and regional LV systolic function. LVEF is calculated at 53%. Electronically signed by : Mel Hernandez, 10/09/2022 00:36:03
--- NOTE | 2022-10-08 14:10 | CA_ITS ---
APPROVED REPORT Exam: Pharmacologic Technologist: Gabbi Huang Ht: 5 ft 6 in Wt: 220 lbs BSA: 2.08 m2 HR: 60 bpm BP: 129/68 mmHg Rhythm: NSR Indications: Chest pain, Syncope Medical History Medications: Lisinopril,,,,, Metoprolol,,,,, Vitamin D3,,,,, Atorvastatin,,,,, Buspirone,,,,, Albuterol,,,,, CloPIdogrel,,,,, LoraTidine,,,,, AmiTRIPTYLINE,,,,, PaXIL,,,,, Nitroglycerin,,,,, Hydroxyzine,,,,, Stress Test Details Test: LEXISCAN HR Resting HR: 61 bpm Max Heart Rate (APMHR): 166 bpm Max HR Achieved: 82 bpm Target HR (85% APMHR): 141 bpm % of APMHR: 49 Recovery HR: 70 bpm BP Resting BP: 129.0/68.0 mmHg Max BP: 138.0/70.0 mmHg Recovery BP: 138.0/79.0 mmHg ECG Resting ECG: Normal sinus rhythm Stress ECG: No change Arrhythmia: None Clinical Exercise duration: 04:00 min Highest Stage Achieved: Exercise capacity: 1.0 METs Stress ECG Conclusion Symptoms: Dyspnea, Chest pressure Arrhythmias/Ectopy: None ST-T Changes: No significant ST changes Conclusion: Unremarkable Lexiscan stress test. Myoview images are reported separately. Test Summary REST . . . . . . . Resting REST 01:57 . . 61 . 129/ 68 . . Stage 1 . . . . . . . Myoview Injected Stage 1 01:00 . . 70 . . . . Stage 2 01:00 . . 82 . 116/ 68 . . Stage 3 01:00 . . 74 . 138/ 70 . . Stage 4 01:00 . . 72 . 132/ 71 . Stop exercise at 04:00 RECOVERY 01:00 . . 72 . . . . RECOVERY 02:00 . . 71 . 130/ 74 . . RECOVERY 03:00 . . 70 . 138/ 79 . . RECOVERY 03:14 . . 72 . 138/ 79 . . Electronically signed by : Mel Hernandez, 10/09/2022 00:32:57
== END ==
PROVIDERS: PCP Internal Medicine; Visit Provider Physician Assistant
DX: R55 Syncope and collapse (principal); I20.8 Other forms of angina pectoris; I10 Essential (primary) hypertension; E78.5 Hyperlipidemia, unspecified; I65.23 Occlusion and stenosis of bilateral carotid arteries; E66.9 Obesity, unspecified; Z68.35 Body mass index [BMI] 35.0-35.9, adult; Z95.5 Presence of coronary angioplasty implant and graft
CPT/HCPCS: 78452; 93017; 93306; 93880; A9502; J2785

== ENCOUNTER 2022-10-15 10:10 | Day surgery (SDC) | payer BC, SELFPAY ==
[2022-10-15] VITALS (12 sets, daily range): BP systolic 90–114; BP diastolic 57–68; PULSE 57–68; RESP 17–18; TEMP 37; O2SAT 90–95; BMI 35.5
--- NOTE | 2022-10-15 07:11 | IR_ITS ---
APPROVED REPORT Patient Location: Outpatient PROCEDURES Left heart catheterization Left ventriculogram Selective coronary angiogram INDICATION Known coronary artery disease, Angina pectoris, Abnormal echocardiogram with regional wall motion abnormality, Informed consent was obtained prior to the procedure. COMPLICATIONS None Estimated Blood Loss: Less than 10 mls TECHNIQUE One percent lidocaine used to anesthetize the right anterior aspect of the wrist. The right radial artery was accessed via the Seldinger technique. A 6 [place] sheath was placed in the right radial artery. 2.5 mg of Verapamil, 800 mcg of nitroglycerin, 1mg Lidocaine and 5000 U Heparin were given through the arterial sheath. The papa catheter was also used to perform left heart catheterization, left ventriculogram and selective coronary angiogram. At the end of the procedure the sheath was removed good hemostasis was achieved using Traclet band, patient was transferred to the postop holding area in stable condition. ANGIOGRAPHIC RESULTS The left main artery Has an ostial smooth 20% stenosis The left anterior descending artery Has a stent in the proximal to mid segment is widely patent free of in-stent restenosis with excellent proximal distal transitioning. The remaining vessel has mild luminal regularities The circumflex artery Dominant with proximal 20 to 30% stenosis The right coronary artery Nondominant with mild 10% diffuse luminal regularities The LU ventriculogram reveals Preserved at 55% with mild anterior wall hypokinesis The left ventricular end-diastolic pressure 10 mmHg IMPRESSION Widely patent proximal to mid LAD stent as described above Mild coronary disease as described above Preserved ejection fraction with mild regional wall motion abnormality Normal LVEDP PLAN 1. Continue medical management with aggressive risk factor modification Electronically signed by : Barney Rodriguez MD 10/15/2022 12:41:16
[2022-10-15 10:47] LABS: Basophils % 0.5 % (0.1-2.0); Chloride 100 mmol/L (98-107); Eosinophils # 0.1 K/mm3 (0.0-0.4); Eosinophils % 1.4 % (0.1-12.0); Hemoglobin 14.8 g/dL (12.2-16.2); Lymphocytes # 1.5 K/mm3 (0.7-4.5); Lymphocytes % 28.4 % (10-50); Mean Corpuscular HGB Conc 32.8 g/dL (31.8-35.4); Mean Corpuscular Hemoglobin 32.9 pg (27.0-31.2); Mean Corpuscular Volume 100.3 fl (81-99); Mean Platelet Volume 8.4 fl (7.4-10.4); Monocytes # 0.3 K/mm3 (0.1-1.0); Monocytes % 5.7 % (1.7-9.3); Neutrophils # 3.4 K/mm3 (1.8-7.8); Platelet Count 191 K/mm3 (142-424); Red Blood Count 4.48 M/mm3 (4.20-5.40); Red Cell Distribution Width 13.8 % (11.5-17.5); Sodium 141 mmol/L (136-145); White Blood Count 5.4 K/mm3 (4.8-10.8)
[2022-10-15 10:48] LABS: Potassium 4.3 mmoL/L (3.5-5.1)
[2022-10-15 10:50] LABS: Blood Urea Nitrogen 9 mg/dl (7-17); Creatinine Clearance Estimated 113 mL/min (50-200); Estimated Glomerular Filt Rate 65 ml/min (>60); GFR (African American) 79 ML/MIN (>60)
[2022-10-15 10:51] LABS: Anion Gap 13.3 mEq/L (5-15); Calcium 9.9 mg/dl (8.4-10.2); Carbon Dioxide 32 mmol/L (22.0-30.0); Glucose 139 mg/dl (74-100)
== END 2022-10-15 15:25 | disposition home or self-care (01) ==
LOC: CATHLAB 10:12
PROVIDERS: PCP Internal Medicine; Visit Provider Internal Medicine
DX: I25.118 Atherosclerotic heart disease of native coronary artery with other forms of angina pectoris (principal); E78.5 Hyperlipidemia, unspecified; I10 Essential (primary) hypertension; I65.23 Occlusion and stenosis of bilateral carotid arteries; Z95.5 Presence of coronary angioplasty implant and graft; Z79.01 Long term (current) use of anticoagulants; Z79.899 Other long term (current) drug therapy
CPT/HCPCS: 80048; 85025; 93458; 99152; C1725; C1769; J1644